=== PATIENT | male | born 1960 | race Two or more races ===

== ENCOUNTER 2016-11-09 02:45 | Inpatient (IN) | payer OTHER, MEDICAID ==
[2016-11-09] VITALS (22 sets, daily range): BP systolic 81–153; BP diastolic 49–89
[~2016-11-09] VITALS: Ht 175.3 cm; Wt 107.2 kg
[2016-11-09] MEDS ORDERED: SODIUM CHLORIDE 0.9% 1,000 ML IV ONE ×2 (03:00→03:30)
[2016-11-09 03:33] LABS: Hematocrit 39.2 % (41.0-53.0); Hemoglobin 12.9 g/dL (13.5-17.5); Mean Corpuscular Hemoglobin 29.2 pg (28.0-32.0); Mean Corpuscular Hgb Conc. 32.8 g/dL (32.0-36.0); Mean Corpuscular Volume 89.1 fL (80.0-100.0); Mean Platelet Volume 7.6 fL (7.4-10.4); Platelet Count (auto) 409 10^3/uL (140-450); Red Cell Distribution Width 16.2 % (11.6-16.0); SUSPECT VIEW TRANSMISSION
[2016-11-09 03:43] LABS: Albumin 3.2 g/dL (3.4-5.0); BUN/Creatinine Ratio 11.6; Calcium 8.5 mg/dL (8.5-10.1); Magnesium 1.8 mg/dL (1.6-2.6); Potassium 3.6 mmol/L (3.5-5.1)
[2016-11-09 03:45] LABS: Lactic Acid 7.1 mmol/L (0.4-2.0)
[2016-11-09 03:47] LABS: Bilirubin, Total 0.5 mg/dL (0.2-1.0); Total Protein 7.7 g/dL (6.4-8.2)
[2016-11-09 03:48] LABS: REFLEX LACTIC ACID YES OR NO YES
[2016-11-09 03:50] LABS: White Blood Cell 30.2 10^3/uL (4.4-10.8)
[2016-11-09 03:56] LABS: Temperature: 20.7 C (20.0-25.0)
[2016-11-09 04:17] LABS: Metamyelocytes % 0; Myelocytes % 0; Promyelocytes % 0; Reactive Lymphocytes 0
[2016-11-09] MEDS ORDERED: LEVO-28 PO (04:26)
[2016-11-09] MEDS ORDERED: HYDR25SU13 PR (04:28)
[2016-11-09 04:31] LABS: Hypersegmented Neutrophils Present
[2016-11-09 04:32] LABS: Anisocytosis Slight; Microcytosis Slight; Platelet Estimate Adequate
[2016-11-09] MEDS ORDERED: GABA-339 PO (04:47)
[2016-11-09] MEDS ORDERED: BACL20TA PO (04:47)
[2016-11-09] MEDS ORDERED: DILT240C PO (04:47)
[2016-11-09] MEDS ORDERED: MORP60TA25 PO (04:47)
[2016-11-09] MEDS ORDERED: MONT10TA34 PO (04:47)
[2016-11-09] MEDS ORDERED: FLUO20CA19 PO (04:47)
[2016-11-09] MEDS ORDERED: NALO1TAB2 PO (04:47)
[2016-11-09] MEDS ORDERED: ONDA4TAB5 PO (04:47)
[2016-11-09] MEDS ORDERED: OMEP20CA5 PO (04:47)
[2016-11-09] MEDS ORDERED: ALL300T PO (04:47)
[2016-11-09] MEDS ORDERED: FUROSEMIDE 20 MG/2 ML VIAL IV ONE (05:45)
[2016-11-09] MEDS ORDERED: cefTRIAXone 1GM/50ML D5W 50 ML IV ONE ×2 (05:51→06:15)
[2016-11-09] MEDS ORDERED: IOHEXOL 350 MG/ML 100ML IJ ONE (06:34)
[2016-11-09 09:39] LABS: Urine RBC None Seen /hpf (0 - 3)
[2016-11-09 09:47] LABS: Urine Bilirubin Negative (Negative); Urine Blood Negative /uL (Negative); Urine Color Yellow (Yellow); Urine Glucose Normal (Normal); Urine Ketone TRACE (Negative); Urine Mucus FEW (None Seen); Urine Nitrite Negative (Negative); Urine Squamous Epithelial Cell FEW /hpf (<5); Urine pH 5.5 (5.0-8.0)
[2016-11-09] MEDS ORDERED: FUROSEMIDE 40 MG/4 ML VIAL IV ONE (11:15)
[2016-11-09] MEDS ORDERED: VANCOMYCIN PER PHARMACY 0 MG IV SCH (11:30)
[2016-11-09] MEDS ORDERED: POTASSIUM CHL 10 Meq TABLET PO ONE (11:45)
[2016-11-09] MEDS ORDERED: DOCUSATE SOD 100 MG CAP PO PRN (12:00)
[2016-11-09] MEDS ORDERED: MORPHINE SULF INJ 2 MG/ML SYRINGE 1ML IV PRN ×2 (12:00)
[2016-11-09] MEDS ORDERED: ONDANSETRON HCL 4 MG/2 ML VIAL IV PRN (12:00)
[2016-11-09] MEDS ORDERED: NITROGLYCERIN 0.4 MG SL TAB SL PRN (12:00)
[2016-11-09] MEDS ORDERED: MULTIPLE VITAMIN TAB PO ONE (12:00)
[2016-11-09] MEDS ORDERED: TEMAZEPAM 15 MG CAP PO PRN (12:00)
[2016-11-09] MEDS: Boost Glucose Control 8 Ounces PO SCH ×2 (12:00→18:00)
[2016-11-09] MEDS: methylPREDNISolone SOD SUCC 125 MG/2 ML VL IV SCH ×2 (12:12→18:40)
[2016-11-09] MEDS: PIPERACILLIN-TAZOB 3.375GM 100 ML IV SCH ×2 (12:13→18:40)
[2016-11-09] MEDS ORDERED: DILTIAZEM HCL 120MG ER CAP PO ONE (12:15)
[2016-11-09] MEDS ORDERED: FLUoxetine HCL 20 MG CAP PO ONE (12:15)
[2016-11-09] MEDS ORDERED: MONTELUKAST SODIUM 10 MG TAB PO ONE (12:15)
[2016-11-09] MEDS ORDERED: ALLOPURINOL 300 MG TAB PO ONE (12:15)
[2016-11-09] MEDS: ALBUTEROL SULF 2.5 MG/0.5ML(0.5%) NEB SOLN NEB SCH ×2 (12:32→18:47)
[2016-11-09] MEDS: IPRATROPIUM BROM 0.5 MG/2.5ML INH SOL NEB SCH ×2 (12:32→18:47)
[2016-11-09] MEDS: VANCOMYCIN 1GM/250ML D5W 250 ML IV SCH (13:11)
[2016-11-09] MEDS: SODIUM CHLOR 0.9% PF (SALINE LOCK) 10ML VIAL IV SCH ×2 (14:06→22:21)
[2016-11-09] MEDS: LORazepam 0.5 MG TAB PO PRN (19:35)
[2016-11-09] MEDS: FUROSEMIDE 40 MG/4 ML VIAL IV SCH (19:36)
[2016-11-09] MEDS: DILTIAZEM HCL 120MG ER CAP PO SCH (22:00)
[2016-11-09] MEDS: GABAPENTIN 300 MG CAP PO SCH (22:20)
[2016-11-09] MEDS: POTASSIUM CHL 10 Meq TABLET PO SCH (22:20)
[2016-11-09] MEDS: MORPHINE SULF 15mg ER tab PO SCH (22:21)
[2016-11-09] MEDS: FAMOTIDINE 20 MG TAB PO SCH (22:21)
[2016-11-10] VITALS (34 sets, daily range): BP systolic 82–117; BP diastolic 50–83
[2016-11-10] MEDS: ALBUTEROL SULF 2.5 MG/0.5ML(0.5%) NEB SOLN NEB SCH ×4 (00:04→18:28)
[2016-11-10] MEDS: IPRATROPIUM BROM 0.5 MG/2.5ML INH SOL NEB SCH ×4 (00:04→18:28)
[2016-11-10] MEDS: PIPERACILLIN-TAZOB 3.375GM 100 ML IV SCH ×3 (00:13→13:07)
[2016-11-10] MEDS: methylPREDNISolone SOD SUCC 125 MG/2 ML VL IV SCH ×4 (00:13→22:13)
[2016-11-10] MEDS: VANCOMYCIN 1GM/250ML D5W 250 ML IV SCH ×2 (01:18→14:13)
[2016-11-10 03:48] LABS: Basophils # (auto) 0 uL; Eosinophils # (auto) 0 uL; Hematocrit 37.7 % (41.0-53.0); Hemoglobin 12.2 g/dL (13.5-17.5); Lymphocytes # (auto) 1.2 uL; Lymphocytes % (auto) 6.4 % (10.0-50.0); Mean Corpuscular Hgb Conc. 32.3 g/dL (32.0-36.0); Mean Corpuscular Volume 89.7 fL (80.0-100.0); Mean Platelet Volume 7.4 fL (7.4-10.4); Monocytes # (auto) 0.4 uL; Monocytes % (auto) 2.1 % (0.0-12.0); Neutrophils # (auto) 16.9 uL; Neutrophils % (auto) 91.5 % (37.0-80.0); Platelet Count (auto) 395 10^3/uL (140-450); Red Cell Distribution Width 16.1 % (11.6-16.0); White Blood Cell 18.5 10^3/uL (4.4-10.8)
[2016-11-10 04:04] LABS: Albumin 3.1 g/dL (3.4-5.0); Calcium 8.9 mg/dL (8.5-10.1); Potassium 3.9 mmol/L (3.5-5.1)
[2016-11-10 04:06] LABS: BUN/Creatinine Ratio 18.9
[2016-11-10 04:18] LABS: Bilirubin, Total 0.6 mg/dL (0.2-1.0); Total Protein 7.1 g/dL (6.4-8.2)
[2016-11-10] MEDS: FUROSEMIDE 40 MG/4 ML VIAL IV SCH (06:00)
[2016-11-10] MEDS: SODIUM CHLOR 0.9% PF (SALINE LOCK) 10ML VIAL IV SCH ×3 (06:04→22:14)
[2016-11-10] MEDS: LORazepam 0.5 MG TAB PO PRN (07:47)
[2016-11-10] MEDS: Boost Glucose Control 8 Ounces PO SCH ×3 (08:00→18:00)
[2016-11-10] MEDS ORDERED: NOR5T PO (08:59)
[2016-11-10] MEDS ORDERED: TRIA1SPR5 (08:59)
[2016-11-10] MEDS ORDERED: CETI1CAP PO (09:05)
[2016-11-10] MEDS ORDERED: GABA300C8 PO ×2 (09:05)
[2016-11-10] MEDS: DILTIAZEM HCL 120MG ER CAP PO SCH (10:00)
[2016-11-10] MEDS: MULTIPLE VITAMIN TAB PO SCH (10:13)
[2016-11-10] MEDS: ALLOPURINOL 300 MG TAB PO SCH (10:13)
[2016-11-10] MEDS: GABAPENTIN 300 MG CAP PO SCH ×2 (10:13→22:12)
[2016-11-10] MEDS: POTASSIUM CHL 10 Meq TABLET PO SCH (10:14)
[2016-11-10] MEDS: MORPHINE SULF 15mg ER tab PO SCH ×2 (10:14→22:13)
[2016-11-10] MEDS: MONTELUKAST SODIUM 10 MG TAB PO SCH (10:14)
[2016-11-10] MEDS: FLUoxetine HCL 20 MG CAP PO SCH (10:14)
[2016-11-10] MEDS: FAMOTIDINE 20 MG TAB PO SCH ×2 (10:14→22:12)
[2016-11-10] MEDS: SALINE 0.65 % NASAL SPRAY 45ML BOTTLE SCH ×3 (13:07→22:13)
[2016-11-10] MEDS ORDERED: BACTRIM 5MG/KG Q8HR PER RX 0 ML IV SCH (14:45)
[2016-11-10] MEDS ORDERED: FLUCONAZOLE 200MG/100ML 100 ML IV ONE (16:15)
[2016-11-10] MEDS: SULFAMETH-TRIMETH 80/16MG-ML 30 ML in D5W 5% 500 ML IV SCH (18:21)
[2016-11-11] VITALS (40 sets, daily range): BP systolic 101–137; BP diastolic 61–87
[2016-11-11] MEDS: IPRATROPIUM BROM 0.5 MG/2.5ML INH SOL NEB SCH ×4 (00:20→19:02)
[2016-11-11] MEDS: ALBUTEROL SULF 2.5 MG/0.5ML(0.5%) NEB SOLN NEB SCH ×4 (00:20→19:01)
[2016-11-11] MEDS ORDERED: VANCOMYCIN 1GM/250ML D5W 250 ML IV SCH (01:00)
[2016-11-11] MEDS: SULFAMETH-TRIMETH 80/16MG-ML 30 ML in D5W 5% 500 ML IV SCH ×3 (02:00→17:36)
[2016-11-11 03:55] LABS: Hematocrit 35.9 % (41.0-53.0); Hemoglobin 11.5 g/dL (13.5-17.5); Mean Corpuscular Hemoglobin 28.6 pg (28.0-32.0); Mean Corpuscular Hgb Conc. 32.1 g/dL (32.0-36.0); Mean Corpuscular Volume 89.2 fL (80.0-100.0); Mean Platelet Volume 7.1 fL (7.4-10.4); Platelet Count (auto) 390 10^3/uL (140-450); Red Cell Distribution Width 16.3 % (11.6-16.0); SUSPECT VIEW TRANSMISSION; White Blood Cell 26.1 10^3/uL (4.4-10.8)
[2016-11-11 04:26] LABS: Albumin 2.9 g/dL (3.4-5.0); BUN/Creatinine Ratio 33.8; Bilirubin, Total 0.2 mg/dL (0.2-1.0); Potassium 3.6 mmol/L (3.5-5.1); Total Protein 7.1 g/dL (6.4-8.2)
[2016-11-11 04:33] LABS: Metamyelocytes % 0; Myelocytes % 0; Promyelocytes % 0; Reactive Lymphocytes 0
[2016-11-11 04:52] LABS: Anisocytosis Slight; Hypersegmented Neutrophils Present; Platelet Estimate Adequate
[2016-11-11] MEDS: SALINE 0.65 % NASAL SPRAY 45ML BOTTLE SCH ×4 (06:00→22:00)
[2016-11-11] MEDS: Boost Glucose Control 8 Ounces PO SCH ×3 (08:00→17:36)
[2016-11-11] MEDS: SODIUM CHLOR 0.9% PF (SALINE LOCK) 10ML VIAL IV SCH ×3 (09:44→22:00)
[2016-11-11] MEDS: VANCOMYCIN 1GM/250ML D5W 250 ML IV SCH ×2 (09:45→16:30)
[2016-11-11] MEDS: ALLOPURINOL 300 MG TAB PO SCH (09:49)
[2016-11-11] MEDS: MONTELUKAST SODIUM 10 MG TAB PO SCH (09:49)
[2016-11-11] MEDS: MULTIPLE VITAMIN TAB PO SCH (09:49)
[2016-11-11] MEDS: FLUoxetine HCL 20 MG CAP PO SCH (09:49)
[2016-11-11] MEDS: methylPREDNISolone SOD SUCC 125 MG/2 ML VL IV SCH ×2 (09:49→22:54)
[2016-11-11] MEDS: FAMOTIDINE 20 MG TAB PO SCH ×2 (09:49→22:53)
[2016-11-11] MEDS: MORPHINE SULF 15mg ER tab PO SCH ×2 (09:50→22:53)
[2016-11-11] MEDS: GABAPENTIN 300 MG CAP PO SCH ×2 (09:50→22:52)
[2016-11-11] MEDS: FLUCONAZOLE 200MG/100ML 100 ML IV SCH (10:45)
[2016-11-11] MEDS: LORazepam 0.5 MG TAB PO PRN (16:28)
[2016-11-11] MEDS: TRIAMCINOLONE 55 MCG EACHNOSTRI SCH (17:36)
[2016-11-11] MEDS: LACTULOSE 20Gm/30ML SOLN PO SCH (22:00)
[2016-11-12] VITALS (12 sets, daily range): BP systolic 101–136; BP diastolic 62–90
[2016-11-12] MEDS: ALBUTEROL SULF 2.5 MG/0.5ML(0.5%) NEB SOLN NEB SCH ×4 (01:10→18:10)
[2016-11-12] MEDS: IPRATROPIUM BROM 0.5 MG/2.5ML INH SOL NEB SCH ×4 (01:10→18:10)
[2016-11-12] MEDS: SULFAMETH-TRIMETH 80/16MG-ML 30 ML in D5W 5% 500 ML IV SCH ×3 (01:58→18:33)
[2016-11-12] MEDS: VANCOMYCIN 1GM/250ML D5W 250 ML IV SCH ×3 (02:31→16:39)
[2016-11-12] MEDS: SALINE 0.65 % NASAL SPRAY 45ML BOTTLE SCH ×4 (05:21→19:49)
[2016-11-12] MEDS: SODIUM CHLOR 0.9% PF (SALINE LOCK) 10ML VIAL IV SCH ×3 (05:21→19:49)
[2016-11-12 06:14] LABS: Calcium 9.1 mg/dL (8.5-10.1); Potassium 3.9 mmol/L (3.5-5.1)
[2016-11-12 06:44] LABS: Basophils # (auto) 0 uL; Basophils % (auto) 0.1 % (0.0-2.0); Eosinophils # (auto) 0 uL; Eosinophils % (auto) 0.1 % (0.0-7.0); Hematocrit 43.5 % (41.0-53.0); Hemoglobin 14.2 g/dL (13.5-17.5); Lymphocytes # (auto) 1.2 uL; Lymphocytes % (auto) 4.6 % (10.0-50.0); Mean Corpuscular Hemoglobin 29.2 pg (28.0-32.0); Mean Corpuscular Hgb Conc. 32.6 g/dL (32.0-36.0); Mean Corpuscular Volume 89.7 fL (80.0-100.0); Mean Platelet Volume 7.6 fL (7.4-10.4); Monocytes # (auto) 1.1 uL; Monocytes % (auto) 4.2 % (0.0-12.0); Platelet Count (auto) 491 10^3/uL (140-450); Red Cell Distribution Width 14.9 % (11.6-16.0); SUSPECT VIEW TRANSMISSION; White Blood Cell 25.3 10^3/uL (4.4-10.8)
[2016-11-12] MEDS: Boost Glucose Control 8 Ounces PO SCH ×3 (08:00→18:00)
[2016-11-12] MEDS: FLUCONAZOLE 200MG/100ML 100 ML IV SCH (08:32)
[2016-11-12] MEDS ORDERED: PATIENTS OWN MEDICATION SCH ×2 (10:00)
[2016-11-12] MEDS: MORPHINE SULF 15mg ER tab PO SCH ×2 (10:00→19:50)
[2016-11-12] MEDS ORDERED: FLUTICASONE PROP NASAL SPR 0.05 % (50MCG) 16GM EACHNOSTRI SCH (10:00)
[2016-11-12] MEDS: FAMOTIDINE 20 MG TAB PO SCH ×2 (11:00→19:50)
[2016-11-12] MEDS: methylPREDNISolone SOD SUCC 125 MG/2 ML VL IV SCH ×2 (11:00→19:49)
[2016-11-12] MEDS: FLUoxetine HCL 20 MG CAP PO SCH (11:00)
[2016-11-12] MEDS: LACTULOSE 20Gm/30ML SOLN PO SCH ×2 (11:00→19:49)
[2016-11-12] MEDS: GABAPENTIN 300 MG CAP PO SCH ×2 (11:00→19:50)
[2016-11-12] MEDS: TRIAMCINOLONE 55 MCG EACHNOSTRI SCH (11:00)
[2016-11-12] MEDS: MONTELUKAST SODIUM 10 MG TAB PO SCH (11:00)
[2016-11-12] MEDS ORDERED: cefTAZidime 1 GM in D5W 5% 50 ML IV ONE (11:00)
[2016-11-12] MEDS: ALLOPURINOL 300 MG TAB PO SCH (11:00)
[2016-11-12] MEDS: MULTIPLE VITAMIN TAB PO SCH (11:00)
[2016-11-12] MEDS: LORazepam 0.5 MG TAB PO PRN (13:00)
[2016-11-12] MEDS: ACETAMINOPHEN 325 MG TAB PO PRN (14:36)
[2016-11-12] MEDS: cefTAZidime 1 GM in D5W 5% 50 ML IV SCH (19:49)
[2016-11-13] VITALS (10 sets, daily range): BP systolic 111–139; BP diastolic 67–90
[2016-11-13] MEDS: VANCOMYCIN 1GM/250ML D5W 250 ML IV SCH ×3 (00:06→16:30)
[2016-11-13] MEDS: ALBUTEROL SULF 2.5 MG/0.5ML(0.5%) NEB SOLN NEB SCH ×4 (00:39→18:28)
[2016-11-13] MEDS: IPRATROPIUM BROM 0.5 MG/2.5ML INH SOL NEB SCH ×4 (00:39→18:28)
[2016-11-13] MEDS: SULFAMETH-TRIMETH 80/16MG-ML 30 ML in D5W 5% 500 ML IV SCH ×3 (01:05→17:50)
[2016-11-13] MEDS: cefTAZidime 1 GM in D5W 5% 50 ML IV SCH ×3 (02:11→20:47)
[2016-11-13] MEDS: SODIUM CHLOR 0.9% PF (SALINE LOCK) 10ML VIAL IV SCH ×3 (05:21→21:00)
[2016-11-13] MEDS: SALINE 0.65 % NASAL SPRAY 45ML BOTTLE SCH ×4 (05:21→21:00)
[2016-11-13 06:08] LABS: Basophils # (auto) 0 uL; Eosinophils # (auto) 0 uL; Hematocrit 40.5 % (41.0-53.0); Lymphocytes # (auto) 0.9 uL; Lymphocytes % (auto) 5.1 % (10.0-50.0); Mean Corpuscular Hemoglobin 28.7 pg (28.0-32.0); Mean Corpuscular Hgb Conc. 32.2 g/dL (32.0-36.0); Mean Corpuscular Volume 89.2 fL (80.0-100.0); Mean Platelet Volume 7.4 fL (7.4-10.4); Monocytes % (auto) 5.6 % (0.0-12.0); Neutrophils # (auto) 16.4 uL; Neutrophils % (auto) 89.3 % (37.0-80.0); Platelet Count (auto) 436 10^3/uL (140-450); Red Cell Distribution Width 16.1 % (11.6-16.0); White Blood Cell 18.4 10^3/uL (4.4-10.8)
[2016-11-13] MEDS: Boost Glucose Control 8 Ounces PO SCH ×3 (08:00→17:53)
[2016-11-13] MEDS: FLUCONAZOLE 200MG/100ML 100 ML IV SCH (08:12)
[2016-11-13] MEDS: MORPHINE SULF 15mg ER tab PO SCH ×2 (10:00→21:01)
[2016-11-13] MEDS: LACTULOSE 20Gm/30ML SOLN PO SCH ×2 (10:25→21:00)
[2016-11-13] MEDS: MULTIPLE VITAMIN TAB PO SCH (10:25)
[2016-11-13] MEDS: GABAPENTIN 300 MG CAP PO SCH ×2 (10:25→21:00)
[2016-11-13] MEDS: methylPREDNISolone SOD SUCC 125 MG/2 ML VL IV SCH ×2 (10:25→21:00)
[2016-11-13] MEDS: TRIAMCINOLONE 55 MCG EACHNOSTRI SCH (10:25)
[2016-11-13] MEDS: ALLOPURINOL 300 MG TAB PO SCH (10:26)
[2016-11-13] MEDS: FLUoxetine HCL 20 MG CAP PO SCH (10:26)
[2016-11-13] MEDS: MONTELUKAST SODIUM 10 MG TAB PO SCH (10:26)
[2016-11-13] MEDS: FAMOTIDINE 20 MG TAB PO SCH ×2 (10:26→21:00)
[2016-11-13] MEDS: LORazepam 0.5 MG TAB PO PRN ×2 (12:52→20:50)
[2016-11-13] MEDS: BUDESONIDE (INHALATION) 0.5 MG/2 ML NEB NEB SCH (18:28)
[2016-11-14] VITALS (7 sets, daily range): BP systolic 101–128; BP diastolic 26–84
[2016-11-14] MEDS: IPRATROPIUM BROM 0.5 MG/2.5ML INH SOL NEB SCH ×5 (00:26→23:03)
[2016-11-14] MEDS: ALBUTEROL SULF 2.5 MG/0.5ML(0.5%) NEB SOLN NEB SCH ×5 (00:26→23:03)
[2016-11-14] MEDS: VANCOMYCIN 1GM/250ML D5W 250 ML IV SCH ×3 (00:35→17:30)
[2016-11-14] MEDS: SULFAMETH-TRIMETH 80/16MG-ML 30 ML in D5W 5% 500 ML IV SCH ×2 (02:03→19:45)
[2016-11-14] MEDS: cefTAZidime 1 GM in D5W 5% 50 ML IV SCH ×3 (02:32→19:47)
[2016-11-14] MEDS: LORazepam 0.5 MG TAB PO PRN (04:31)
[2016-11-14] MEDS: ACETAMINOPHEN 325 MG TAB PO PRN (04:31)
[2016-11-14] MEDS: SODIUM CHLOR 0.9% PF (SALINE LOCK) 10ML VIAL IV SCH ×3 (05:21→21:32)
[2016-11-14] MEDS: SALINE 0.65 % NASAL SPRAY 45ML BOTTLE SCH ×4 (05:21→21:32)
[2016-11-14 06:07] LABS: BUN/Creatinine Ratio 17.4; Calcium 8.9 mg/dL (8.5-10.1); Potassium 4.4 mmol/L (3.5-5.1)
[2016-11-14 06:22] LABS: Basophils # (auto) 0 uL; Eosinophils # (auto) 0 uL; Hematocrit 43.3 % (41.0-53.0); Hemoglobin 13.8 g/dL (13.5-17.5); Lymphocytes # (auto) 0.8 uL; Lymphocytes % (auto) 4.2 % (10.0-50.0); Mean Corpuscular Hemoglobin 28.4 pg (28.0-32.0); Mean Corpuscular Hgb Conc. 31.8 g/dL (32.0-36.0); Mean Corpuscular Volume 89.5 fL (80.0-100.0); Mean Platelet Volume 7.4 fL (7.4-10.4); Monocytes # (auto) 0.5 uL; Neutrophils # (auto) 16.9 uL; Neutrophils % (auto) 92.8 % (37.0-80.0); Platelet Count (auto) 485 10^3/uL (140-450); Red Cell Distribution Width 15.8 % (11.6-16.0); White Blood Cell 18.2 10^3/uL (4.4-10.8)
[2016-11-14] MEDS: BUDESONIDE (INHALATION) 0.5 MG/2 ML NEB NEB SCH ×2 (06:38→18:07)
[2016-11-14] MEDS: Boost Glucose Control 8 Ounces PO SCH ×3 (08:00→18:00)
[2016-11-14] MEDS: FLUCONAZOLE 200MG/100ML 100 ML IV SCH (09:22)
[2016-11-14] MEDS: LACTULOSE 20Gm/30ML SOLN PO SCH ×2 (10:00→21:32)
[2016-11-14] MEDS ORDERED: MICAFUNGIN SODIUM 100 MG in SODIUM CHL 0.9% 100 ML IV ONE (10:15)
[2016-11-14] MEDS: MORPHINE SULF 15mg ER tab PO SCH ×2 (10:27→21:33)
[2016-11-14] MEDS: FAMOTIDINE 20 MG TAB PO SCH ×2 (10:28→21:33)
[2016-11-14] MEDS: GABAPENTIN 300 MG CAP PO SCH ×2 (10:28→21:32)
[2016-11-14] MEDS: MULTIPLE VITAMIN TAB PO SCH (10:29)
[2016-11-14] MEDS: MONTELUKAST SODIUM 10 MG TAB PO SCH (10:29)
[2016-11-14] MEDS: TRIAMCINOLONE 55 MCG EACHNOSTRI SCH (10:29)
[2016-11-14] MEDS: ALLOPURINOL 300 MG TAB PO SCH (10:29)
[2016-11-14] MEDS: FLUoxetine HCL 20 MG CAP PO SCH (10:29)
[2016-11-14] MEDS: ALPRAZolam 0.25 MG TAB PO PRN ×2 (13:00→21:33)
[2016-11-14] MEDS: BACLOFEN 10 MG TAB PO PRN (17:54)
[2016-11-14] MEDS: HYDROcodone-ACET 5/325MG TAB PO PRN (17:54)
[2016-11-14] MEDS: methylPREDNISolone SOD SUCC 125 MG/2 ML VL IV SCH (19:46)
[2016-11-15] VITALS: BP 119/78
[2016-11-15] MEDS: VANCOMYCIN 1GM/250ML D5W 250 ML IV SCH ×2 (00:32→09:21)
[2016-11-15] MEDS: cefTAZidime 1 GM in D5W 5% 50 ML IV SCH (02:52)
[2016-11-15 04:00] VITALS: BP 114/70
[2016-11-15] MEDS: SODIUM CHLOR 0.9% PF (SALINE LOCK) 10ML VIAL IV SCH ×3 (05:22→22:22)
[2016-11-15] MEDS: SALINE 0.65 % NASAL SPRAY 45ML BOTTLE SCH ×4 (05:22→22:22)
[2016-11-15 06:04] LABS: Basophils # (auto) 0 uL; Basophils % (auto) 0.1 % (0.0-2.0); Eosinophils # (auto) 0.5 uL; Eosinophils % (auto) 2.2 % (0.0-7.0); Hematocrit 44.3 % (41.0-53.0); Hemoglobin 14.2 g/dL (13.5-17.5); Lymphocytes # (auto) 2.3 uL; Lymphocytes % (auto) 10.9 % (10.0-50.0); Mean Corpuscular Hemoglobin 28.7 pg (28.0-32.0); Mean Corpuscular Volume 89.9 fL (80.0-100.0); Mean Platelet Volume 7.5 fL (7.4-10.4); Monocytes # (auto) 1.2 uL; Monocytes % (auto) 5.6 % (0.0-12.0); Neutrophils # (auto) 16.8 uL; Neutrophils % (auto) 81.2 % (37.0-80.0); Platelet Count (auto) 411 10^3/uL (140-450); Red Cell Distribution Width 16.4 % (11.6-16.0); White Blood Cell 20.7 10^3/uL (4.4-10.8)
[2016-11-15 06:06] LABS: Potassium 4.6 mmol/L (3.5-5.1)
[2016-11-15 06:13] LABS: Calcium 9.2 mg/dL (8.5-10.1)
[2016-11-15] MEDS: IPRATROPIUM BROM 0.5 MG/2.5ML INH SOL NEB SCH ×3 (06:28→19:01)
[2016-11-15] MEDS: ALBUTEROL SULF 2.5 MG/0.5ML(0.5%) NEB SOLN NEB SCH ×3 (06:28→19:01)
[2016-11-15] MEDS: ACETAMINOPHEN 325 MG TAB PO PRN (06:47)
[2016-11-15 07:40] VITALS: BP 110/71
[2016-11-15] MEDS: Boost Glucose Control 8 Ounces PO SCH ×3 (08:00→17:56)
[2016-11-15] MEDS: GABAPENTIN 300 MG CAP PO SCH ×2 (09:21→22:24)
[2016-11-15] MEDS: FLUoxetine HCL 20 MG CAP PO SCH (09:21)
[2016-11-15] MEDS: MULTIPLE VITAMIN TAB PO SCH (09:21)
[2016-11-15] MEDS: FAMOTIDINE 20 MG TAB PO SCH ×2 (09:22→22:25)
[2016-11-15] MEDS: ALLOPURINOL 300 MG TAB PO SCH (09:22)
[2016-11-15] MEDS: MONTELUKAST SODIUM 10 MG TAB PO SCH (09:22)
[2016-11-15] MEDS: MORPHINE SULF 15mg ER tab PO SCH ×2 (09:22→22:29)
[2016-11-15] MEDS: LACTULOSE 20Gm/30ML SOLN PO SCH ×2 (09:23→22:24)
[2016-11-15] MEDS: TRIAMCINOLONE 55 MCG EACHNOSTRI SCH (09:23)
[2016-11-15] MEDS: MICAFUNGIN SODIUM 100 MG in SODIUM CHL 0.9% 100 ML IV SCH (10:00)
[2016-11-15] MEDS ORDERED: BACTRIM 5MG/KG Q8HR PER RX 0 ML IV SCH (11:00)
[2016-11-15 12:00] VITALS: BP 111/80
[2016-11-15] MEDS: methylPREDNISolone SOD SUCC 40 MG/ML VL IV SCH ×2 (12:05→19:53)
[2016-11-15] MEDS: SULFAMETH-TRIMETH 80/16MG-ML 30 ML in D5W 5% 500 ML IV SCH ×2 (13:00→20:38)
[2016-11-15 15:58] VITALS: BP 123/75
[2016-11-15] MEDS: BUDESONIDE (INHALATION) 0.5 MG/2 ML NEB NEB SCH (19:02)
[2016-11-15 20:00] VITALS: BP 107/74
[2016-11-15] MEDS: ALPRAZolam 0.25 MG TAB PO PRN (22:30)
[2016-11-15] MEDS: HYDROcodone-ACET 5/325MG TAB PO PRN (22:34)
[2016-11-16] VITALS (7 sets, daily range): BP systolic 105–138; BP diastolic 62–85
[2016-11-16] MEDS: IPRATROPIUM BROM 0.5 MG/2.5ML INH SOL NEB SCH ×4 (01:18→18:23)
[2016-11-16] MEDS: ALBUTEROL SULF 2.5 MG/0.5ML(0.5%) NEB SOLN NEB SCH ×4 (01:19→18:23)
[2016-11-16] MEDS: methylPREDNISolone SOD SUCC 40 MG/ML VL IV SCH ×2 (04:12→11:51)
[2016-11-16] MEDS: SULFAMETH-TRIMETH 80/16MG-ML 30 ML in D5W 5% 500 ML IV SCH ×3 (04:12→21:37)
[2016-11-16] MEDS: SODIUM CHLOR 0.9% PF (SALINE LOCK) 10ML VIAL IV SCH ×3 (05:47→21:40)
[2016-11-16] MEDS: SALINE 0.65 % NASAL SPRAY 45ML BOTTLE SCH ×4 (05:47→21:40)
[2016-11-16] MEDS: BUDESONIDE (INHALATION) 0.5 MG/2 ML NEB NEB SCH ×2 (06:35→18:23)
[2016-11-16] MEDS: Boost Glucose Control 8 Ounces PO SCH ×3 (08:00→17:53)
[2016-11-16] MEDS: MORPHINE SULF 15mg ER tab PO SCH ×2 (09:41→21:48)
[2016-11-16] MEDS: MULTIPLE VITAMIN TAB PO SCH (09:41)
[2016-11-16] MEDS: ALLOPURINOL 300 MG TAB PO SCH (09:42)
[2016-11-16] MEDS: GABAPENTIN 300 MG CAP PO SCH ×2 (09:42→21:40)
[2016-11-16] MEDS: MICAFUNGIN SODIUM 100 MG in SODIUM CHL 0.9% 100 ML IV SCH (09:42)
[2016-11-16] MEDS: FAMOTIDINE 20 MG TAB PO SCH ×2 (09:42→21:40)
[2016-11-16] MEDS: MONTELUKAST SODIUM 10 MG TAB PO SCH (09:42)
[2016-11-16] MEDS: FLUoxetine HCL 20 MG CAP PO SCH (09:42)
[2016-11-16] MEDS: LACTULOSE 20Gm/30ML SOLN PO SCH ×2 (09:43→21:40)
[2016-11-16] MEDS: TRIAMCINOLONE 55 MCG EACHNOSTRI SCH (09:44)
[2016-11-16] MEDS: ALPRAZolam 0.25 MG TAB PO PRN (10:24)
[2016-11-17] VITALS (7 sets, daily range): BP systolic 105–143; BP diastolic 62–86
[2016-11-17] MEDS: methylPREDNISolone SOD SUCC 125 MG/2 ML VL IV SCH ×4 (00:25→17:49)
[2016-11-17 05:14] LABS: Hemoglobin 14.1 g/dL (13.5-17.5); Mean Corpuscular Hemoglobin 28.4 pg (28.0-32.0); Mean Corpuscular Hgb Conc. 31.4 g/dL (32.0-36.0); Mean Corpuscular Volume 90.4 fL (80.0-100.0); Mean Platelet Volume 7.3 fL (7.4-10.4); Platelet Count (auto) 461 10^3/uL (140-450); Red Cell Distribution Width 16.6 % (11.6-16.0); SUSPECT VIEW TRANSMISSION; White Blood Cell 26.7 10^3/uL (4.4-10.8)
[2016-11-17] MEDS: SULFAMETH-TRIMETH 80/16MG-ML 30 ML in D5W 5% 500 ML IV SCH (05:16)
[2016-11-17 05:28] LABS: Metamyelocytes % 0; Myelocytes % 0; Promyelocytes % 0; Reactive Lymphocytes 0
[2016-11-17 05:38] LABS: BUN/Creatinine Ratio 21.1; Potassium 4.9 mmol/L (3.5-5.1)
[2016-11-17] MEDS: IPRATROPIUM BROM 0.5 MG/2.5ML INH SOL NEB SCH ×3 (05:57→18:01)
[2016-11-17] MEDS: ALBUTEROL SULF 2.5 MG/0.5ML(0.5%) NEB SOLN NEB SCH ×3 (05:58→18:00)
[2016-11-17] MEDS: SODIUM CHLOR 0.9% PF (SALINE LOCK) 10ML VIAL IV SCH ×3 (06:04→22:02)
[2016-11-17] MEDS: SALINE 0.65 % NASAL SPRAY 45ML BOTTLE SCH ×4 (06:05→22:02)
[2016-11-17 07:38] LABS: Platelet Estimate Adequate; RBC Morphology Normal
[2016-11-17] MEDS: Boost Glucose Control 8 Ounces PO SCH ×3 (08:00→17:53)
[2016-11-17] MEDS: TRIAMCINOLONE 55 MCG EACHNOSTRI SCH (09:37)
[2016-11-17] MEDS: MULTIPLE VITAMIN TAB PO SCH (09:38)
[2016-11-17] MEDS: MORPHINE SULF 15mg ER tab PO SCH ×2 (09:38→21:45)
[2016-11-17] MEDS: LACTULOSE 20Gm/30ML SOLN PO SCH ×2 (09:38→22:00)
[2016-11-17] MEDS: FLUoxetine HCL 20 MG CAP PO SCH (09:38)
[2016-11-17] MEDS: FAMOTIDINE 20 MG TAB PO SCH ×2 (09:38→21:43)
[2016-11-17] MEDS: GABAPENTIN 300 MG CAP PO SCH ×2 (09:38→21:43)
[2016-11-17] MEDS: MICAFUNGIN SODIUM 100 MG in SODIUM CHL 0.9% 100 ML IV SCH (09:39)
[2016-11-17] MEDS: ALLOPURINOL 300 MG TAB PO SCH (09:39)
[2016-11-17] MEDS: MONTELUKAST SODIUM 10 MG TAB PO SCH (09:39)
[2016-11-17] MEDS: ALPRAZolam 0.25 MG TAB PO PRN ×2 (09:41→21:44)
[2016-11-17] MEDS: BUDESONIDE (INHALATION) 0.5 MG/2 ML NEB NEB SCH ×2 (10:00→18:06)
[2016-11-17] MEDS ORDERED: TEMAZEPAM 15 MG CAP PO PRN (12:00)
[2016-11-17] MEDS ORDERED: DEXTROSE (50%) 50ML SYRG IV PRN (12:00)
[2016-11-17] MEDS ORDERED: MORPHINE SULF INJ 2 MG/ML SYRINGE 1ML IV PRN ×2 (12:00)
[2016-11-17] MEDS ORDERED: cefTAZidime 1 GM in D5W 5% 50 ML IV ONE (12:00)
[2016-11-17] MEDS ORDERED: VANCOMYCIN PER PHARMACY 0 MG IV SCH (12:00)
[2016-11-17] MEDS: cefTAZidime 1 GM in D5W 5% 50 ML IV SCH ×2 (13:26→21:41)
[2016-11-17] MEDS ORDERED: cefTAZidime 1 GM in D5W 5% 50 ML IV SCH (14:00)
[2016-11-17] MEDS ORDERED: VANCOMYCIN 1,250 MG in D5W 5% 250 ML IV SCH ×2 (15:00)
[2016-11-17] MEDS: VANCOMYCIN 1,250 MG in D5W 5% 250 ML IV SCH (17:41)
[2016-11-17] MEDS: InsuLIN REG 1unit/0.01ml Soln (100units/ml) SC SCH ×2 (17:44→22:07)
[2016-11-17] MEDS: ACCU-CHEK COMFORT CURVE STRIP VI SCH ×2 (17:44→22:02)
[2016-11-17] MEDS: BACLOFEN 10 MG TAB PO PRN (21:44)
[2016-11-18 04:00] VITALS: BP 124/76
[2016-11-18] MEDS: VANCOMYCIN 1,250 MG in D5W 5% 250 ML IV SCH ×2 (04:50→17:43)
[2016-11-18] MEDS: cefTAZidime 1 GM in D5W 5% 50 ML IV SCH ×2 (04:50→13:06)
[2016-11-18] MEDS: methylPREDNISolone SOD SUCC 125 MG/2 ML VL IV SCH ×4 (04:54→17:44)
[2016-11-18] MEDS: SODIUM CHLOR 0.9% PF (SALINE LOCK) 10ML VIAL IV SCH ×2 (04:59→13:06)
[2016-11-18] MEDS: SALINE 0.65 % NASAL SPRAY 45ML BOTTLE SCH ×3 (05:00→17:43)
[2016-11-18] MEDS: ALBUTEROL SULF 2.5 MG/0.5ML(0.5%) NEB SOLN NEB SCH ×4 (06:24→18:27)
[2016-11-18] MEDS: IPRATROPIUM BROM 0.5 MG/2.5ML INH SOL NEB SCH ×4 (06:24→18:27)
[2016-11-18] MEDS: BUDESONIDE (INHALATION) 0.5 MG/2 ML NEB NEB SCH ×2 (06:25→18:29)
[2016-11-18 06:39] LABS: BUN/Creatinine Ratio 29.9; Bilirubin, Total 0.2 mg/dL (0.2-1.0); Potassium 4.5 mmol/L (3.5-5.1); Total Protein 6.7 g/dL (6.4-8.2)
[2016-11-18] MEDS: InsuLIN REG 1unit/0.01ml Soln (100units/ml) SC SCH ×3 (06:50→16:24)
[2016-11-18] MEDS: ACCU-CHEK COMFORT CURVE STRIP VI SCH ×3 (07:00→16:24)
[2016-11-18 07:55] VITALS: BP 141/96
[2016-11-18] MEDS: Boost Glucose Control 8 Ounces PO SCH ×3 (08:00→17:43)
[2016-11-18] MEDS: MULTIPLE VITAMIN TAB PO SCH (09:36)
[2016-11-18] MEDS: GABAPENTIN 300 MG CAP PO SCH (09:36)
[2016-11-18] MEDS: TRIAMCINOLONE 55 MCG EACHNOSTRI SCH (09:37)
[2016-11-18] MEDS: MICAFUNGIN SODIUM 100 MG in SODIUM CHL 0.9% 100 ML IV SCH (09:37)
[2016-11-18] MEDS: LACTULOSE 20Gm/30ML SOLN PO SCH (09:37)
[2016-11-18] MEDS: ALLOPURINOL 300 MG TAB PO SCH (09:37)
[2016-11-18] MEDS: MORPHINE SULF 15mg ER tab PO SCH (09:37)
[2016-11-18] MEDS: FLUoxetine HCL 20 MG CAP PO SCH (09:38)
[2016-11-18] MEDS: MONTELUKAST SODIUM 10 MG TAB PO SCH (09:38)
[2016-11-18] MEDS: FAMOTIDINE 20 MG TAB PO SCH (09:38)
[2016-11-18] MEDS: HYDROcodone-ACET 5/325MG TAB PO PRN ×2 (09:42→19:52)
[2016-11-18] MEDS ORDERED: MOVANTIK 25 MG PO ONE (11:30)
[2016-11-18 12:00] VITALS: BP 126/77
[2016-11-18 16:10] VITALS: BP 146/88
[2016-11-18] MEDS: ALPRAZolam 0.25 MG TAB PO PRN (17:17)
[2016-11-18] MEDS: ACETAMINOPHEN 325 MG TAB PO PRN (19:52)
[2016-11-18 20:00] VITALS: BP 135/86
== END 2016-11-18 20:35 | disposition short-term general hospital (02) | DRG 871 ==
LOC: ER 02:50 → TELE 02:51 → ICU WEST 14:25 → DOU IN ICU 11-12 00:57
PROVIDERS: ADMIT Internal Medicine; ATTEND Internal Medicine
PROC: 02HV33Z Insertion of Infusion Device into Superior Vena Cava, Percutaneous Approach (ICD-10-PCS; principal; 2016-11-09)
PROC: 5A09557 Assistance with Respiratory Ventilation, Greater than 96 Consecutive Hours, Continuous Positive Airway Pressure (ICD-10-PCS; 2016-11-09)
DX: A41.9 Sepsis, unspecified organism (principal); J96.01 Acute respiratory failure with hypoxia; J18.9 Pneumonia, unspecified organism; J81.0 Acute pulmonary edema; E44.0 Moderate protein-calorie malnutrition; C81.70 Other Hodgkin lymphoma, unspecified site; I13.10 Hypertensive heart and chronic kidney disease without heart failure, with stage 1 through stage 4 chronic kidney disease, or unspecified chronic kidney disease; D63.1 Anemia in chronic kidney disease; E11.65 Type 2 diabetes mellitus with hyperglycemia; M10.9 Gout, unspecified; M19.90 Unspecified osteoarthritis, unspecified site; M79.7 Fibromyalgia; N18.2 Chronic kidney disease, stage 2 (mild); E11.22 Type 2 diabetes mellitus with diabetic chronic kidney disease; E66.01 Morbid (severe) obesity due to excess calories; F41.9 Anxiety disorder, unspecified; Z83.3 Family history of diabetes mellitus; Z92.21 Personal history of antineoplastic chemotherapy; Z68.34 Body mass index [BMI] 34.0-34.9, adult
CPT/HCPCS: 36415; 36600; 71010; 71275; 80048; 80053; 80202; 81001; 82805; 82962; 83036; 83605; 83615; 83735; 83880; 84484; 85007; 85025; 85027; 85049; 85379; 86703; 87040; 87070; 87081; 87205; 87400; 93005; 93306; 93970; 94640; 94660; 96361; 96365; 96375; J0696; J1450; J2248; J2543; J3490; J7060